=== PATIENT | male | born 1985 | race Caucasian/White ===

== ENCOUNTER 2022-01-07 15:45 | Emergency (ER) | payer BC, OTHER ==
[~2022-01-07] VITALS: Ht 180.3 cm; Wt 99.8 kg
[~2022-01-07 15:45] MED LIST: LIDO700A20 TOP; LOPE2C PO; NAPR500 PO; Prinivil10 MG PO
[2022-01-07] MEDS ORDERED: IBUP800 PO (17:17)
== END 2022-01-07 18:00 | disposition home or self-care (01) ==
LOC: ER 15:45
DX: S81.831A Puncture wound without foreign body, right lower leg, initial encounter (principal); I10 Essential (primary) hypertension; W32.0XXA Accidental handgun discharge, initial encounter; Z79.899 Other long term (current) drug therapy
CPT/HCPCS: 72170; 90714; A9270; J0690

== ENCOUNTER 2023-09-14 10:46 | Emergency (ER) | payer OTHER ==
[~2023-09-14] VITALS: Ht 180.3 cm; Wt 97.5 kg
[~2023-09-14 10:46] MED LIST changes: +IBUP800 PO
[2023-09-14 10:58] VITALS: BP 148/92
== END 2023-09-14 14:21 | disposition home or self-care (01) ==
LOC: ER 10:46
DX: S61.012A Laceration without foreign body of left thumb without damage to nail, initial encounter (principal); I10 Essential (primary) hypertension; W26.0XXA Contact with knife, initial encounter; Z79.899 Other long term (current) drug therapy
CPT/HCPCS: 12002; 99282-25